=== PATIENT | female | born 1945 | race Caucasian/White ===

== ENCOUNTER 2020-08-06 10:57 | Outpatient (REF) | payer MEDICARE, SELFPAY ==
--- NOTE | ~2020-08-06 | MM_ITS ---
EXAMINATION: MM SCREENING DIGITAL BREAST TOMOSYNTHESIS, BILATERAL CLINICAL INFORMATION: Screening. Asymptomatic. The lifetime risk of breast cancer based on the Tyrer-Cuzick Model is 4%. COMPARISON: Mammography: 08/01/2019, 04/16/2018, 03/14/2017, 10/12/2015. TECHNIQUE: Digital breast tomosynthesis is performed in both the craniocaudal and mediolateral oblique views along with computer-aided detection (CAD). Synthesized 2D images are generated from the tomosynthesis. Additional right exaggerated CC view is provided. FINDINGS: The breasts are heterogeneously dense, which may obscure small masses (ACR BI-RADS breast composition Category c). There are no significant masses, abnormal calcifications, or other abnormalities. Parenchymal pattern is similar to prior exams. There is small stable nodular asymmetry posteromedial left breast. No developing density. The axilla and skin contours are unremarkable. No significant changes. MM/MM tomosynthesis screening BI IMPRESSION: No mammographic evidence of malignancy. ASSESSMENT: BI-RADS 2: Benign RECOMMENDATION: Routine annual mammography screening. This patient's information was entered into a reminder system with a target due date for their next mammogram.
== END 2020-08-06 10:58 | disposition home or self-care (01) ==
LOC: HO.MAMMO 10:57
PROVIDERS: PCP Internal Medicine; Visit Provider Internal Medicine
DX: Z12.31 Encounter for screening mammogram for malignant neoplasm of breast (principal)
CPT/HCPCS: 77063; 77067

== ENCOUNTER 2021-11-23 09:26 | Outpatient (REF) | payer MEDICARE, SELFPAY ==
--- NOTE | ~2021-11-23 | MM_ITS ---
EXAMINATION: MM SCREENING DIGITAL BREAST TOMOSYNTHESIS, BILATERAL CLINICAL INFORMATION: Screening. Asymptomatic. The lifetime risk of breast cancer based on the Tyrer-Cuzick Model is 5%. COMPARISON: Mammography: 08/06/2020, 08/01/2019, 04/16/2018 TECHNIQUE: Digital breast tomosynthesis is performed in both the craniocaudal and mediolateral oblique views along with computer-aided detection (CAD). Synthesized 2D images are generated from the tomosynthesis. FINDINGS: The breasts are heterogeneously dense, which may obscure small masses (ACR BI-RADS breast composition Category c). Breast tissue composition borders on average fibroglandular. There are no significant masses, abnormal calcifications, or other abnormalities. No developing density. No significant changes. MM/MM tomosynthesis screening BI IMPRESSION: No mammographic evidence of malignancy. ASSESSMENT: BI-RADS 1: Negative RECOMMENDATION: Routine annual mammography screening. This patient's information was entered into a reminder system with a target due date for their next mammogram.
== END 2021-11-23 09:27 | disposition home or self-care (01) ==
LOC: HO.MAMMO 09:26
PROVIDERS: Visit Provider Internal Medicine
DX: Z12.31 Encounter for screening mammogram for malignant neoplasm of breast (principal)
CPT/HCPCS: 77063; 77067

== ENCOUNTER 2022-11-29 09:14 | Outpatient (REF) | payer MEDICARE, SELFPAY ==
--- NOTE | ~2022-11-29 | MM_ITS ---
EXAMINATION: MM SCREENING DIGITAL BREAST TOMOSYNTHESIS, BILATERAL CLINICAL INFORMATION: Screening. Asymptomatic. The lifetime risk of breast cancer based on the Tyrer-Cuzick Model is 4.9%. COMPARISON: Mammography: This study is compared with prior exams dating back to 2017. TECHNIQUE: Digital breast tomosynthesis is performed in both the craniocaudal and mediolateral oblique views along with computer-aided detection (CAD). Synthesized 2D images are generated from the tomosynthesis. FINDINGS: There are scattered areas of fibroglandular density (ACR BI-RADS breast composition Category b). There are no significant masses, abnormal calcifications, or other abnormalities. MM/MM tomosynthesis screening BI IMPRESSION: No mammographic evidence of malignancy. ASSESSMENT: BI-RADS BI-RADS 1 - Negative RECOMMENDATION: Routine annual mammography screening. 1 year F/U This examination should not preclude the clinical evaluation of a suspicious palpable abnormality. This patient's information was entered into a reminder system with a target due date for their next mammogram.
== END 2022-11-29 09:15 | disposition home or self-care (01) ==
LOC: HO.MAMMO 09:14
PROVIDERS: Visit Provider Internal Medicine
DX: Z12.31 Encounter for screening mammogram for malignant neoplasm of breast (principal)
CPT/HCPCS: 77063; 77067

== ENCOUNTER → 2022-11-29 09:15 | Outpatient (BNV) | payer MEDICARE, SELFPAY | PROVIDERS: Visit Provider Radiology Diagnostic Radiology | DX: Z12.31 Encounter for screening mammogram for malignant neoplasm of breast (principal) | CPT/HCPCS: 77063; 77067 ==

== ENCOUNTER 2023-12-05 09:26 | Outpatient (REF) | payer MEDICARE, SELFPAY | END 2023-12-05 09:27 | disposition home or self-care (01) | LOC: HO.MAMMO 09:26 | PROVIDERS: PCP Internal Medicine; Visit Provider Internal Medicine | DX: Z12.31 Encounter for screening mammogram for malignant neoplasm of breast (principal) | CPT/HCPCS: 77063; 77067 ==

== ENCOUNTER → 2023-12-05 09:30 | Outpatient (BNV) | payer MEDICARE, SELFPAY | PROVIDERS: PCP Internal Medicine; Visit Provider Radiology Diagnostic Radiology | DX: Z12.31 Encounter for screening mammogram for malignant neoplasm of breast (principal) | CPT/HCPCS: 77063; 77067 ==

== ENCOUNTER 2024-08-04 10:24 | Day surgery (SDC) | payer MEDICARE, SELFPAY ==
[2024-07-29 15:28] VITALS: BMI 20.2
[2024-07-31 10:49] VITALS: BMI 20.2
--- NOTE | 2024-07-31 14:56 | HO.ANESPROP2 ---
Documented by User: Syeda Lemus NP 07/31/24 14:57 HPI - Anesthesia Eval Consult details Narrative: 79yo F for Left Cataract Extraction IOL Insertion No previous cataract on record PMFSH Past Medical History Medical History Aortic regurgitation Skin cancer PONV (postoperative nausea and vomiting) Osteoporosis Osteopenia Migraines Renal calculi Hyperparathyroidism Hyperlipidemia [place] thyroiditis Hiatal hernia GERD (gastroesophageal reflux disease) Surgical History Surgical History Hx of meniscectomy of right knee History of esophagogastroduodenoscopy (EGD) H/O colonoscopy History of colon surgery Hx of lithotripsy Social History Social History Patient Tobacco Use Status: Never used Tobacco Use of substances other than those prescribed or required for medical reasons: No Sabianist Healthcare Practices: none Advance Directives Information Provided: Yes (as above noted) Advance Directives on File: No FDLMP: n/a Meds Allergies Allergy/AdvReac Type Severity Reaction Status Date / Time aspirin [ASPIRIN] Allergy Intermediate STOMACH Verified 08/04/24 11:38 UPSET Penicillins [PENICILLINS] Allergy Intermediate RASH Verified 08/04/24 11:38 Sulfa (Sulfonamide Allergy Intermediate RASH Verified 08/04/24 11:38 Antibiotics) [SULFA (SULFONAMIDE ANTIBIOTICS)] alendronate sodium [Fosamax] Allergy Unknown Unknown Verified 08/04/24 11:38 hydrochlorothiazide Allergy Unknown Unknown Verified 08/04/24 11:38 pentazocine Allergy Unknown Unknown Verified 08/04/24 11:38 (Talwin) prochlorperazine Allergy Unknown UNKNOWN Verified 08/04/24 11:38 [From COMPAZINE] garlic [GARLIC] AdvReac Intermediate STOMACH Verified 08/04/24 11:38 UPSET lactose [LACTOSE] AdvReac Intermediate DIARRHEA Verified 08/04/24 11:38 tomato [TOMATO] AdvReac Intermediate STOMACH Verified 08/04/24 11:38 UPSET Home Medications ?Medication ?Instructions ?Recorded ?Confirmed ?Last Taken ?Type alendronate 70 mg tablet 70 mg PO QWEEK 07/31/24 07/31/24 Unknown History cholecalciferol (vitamin D3) 50 50 mcg PO DAILY 07/31/24 07/31/24 Unknown History mcg (2,000 unit) capsule (Vitamin D3) cyanocobalamin (vitamin B-12) 1,000 mcg PO DAILY 07/31/24 07/31/24 Unknown History 1,000 mcg tablet (Vitamin B-12) magnesium oxide 250 mg PO DAILY 07/31/24 07/31/24 Unknown History Exam Height,Weight and Vital Signs: Height 5 ft 1 in Weight 48.534 kg Assessment and Plan Assessment Anesthesia Assessment: Chart Reviewed Documented by User: Obdulia Trujillo MD 08/04/24 12:50 PMFSH Past Medical History Medical History Aortic regurgitation Skin cancer PONV (postoperative nausea and vomiting) Osteoporosis Osteopenia Migraines Renal calculi Hyperparathyroidism Hyperlipidemia [place] thyroiditis Hiatal hernia GERD (gastroesophageal reflux disease) Family History Family history of problems with anesthesia: No Surgical History Surgical History Hx of meniscectomy of right knee History of esophagogastroduodenoscopy (EGD) H/O colonoscopy History of colon surgery Hx of lithotripsy History of Problems with Anesthesia: No Social History Social History Patient Tobacco Use Status: Never used Tobacco Use of substances other than those prescribed or required for medical reasons: No Sabianist Healthcare Practices: none Advance Directives Information Provided: Yes (as above noted) Advance Directives on File: No FDLMP: n/a Meds Allergies Allergy/AdvReac Type Severity Reaction Status Date / Time aspirin [ASPIRIN] Allergy Intermediate STOMACH Verified 08/04/24 11:38 UPSET Penicillins [PENICILLINS] Allergy Intermediate RASH Verified 08/04/24 11:38 Sulfa (Sulfonamide Allergy Intermediate RASH Verified 08/04/24 11:38 Antibiotics) [SULFA (SULFONAMIDE ANTIBIOTICS)] alendronate sodium [Fosamax] Allergy Unknown Unknown Verified 08/04/24 11:38 hydrochlorothiazide Allergy Unknown Unknown Verified 08/04/24 11:38 pentazocine Allergy Unknown Unknown Verified 08/04/24 11:38 (Jimmy) prochlorperazine Allergy Unknown UNKNOWN Verified 08/04/24 11:38 [From COMPAZINE] garlic [GARLIC] AdvReac Intermediate STOMACH Verified 08/04/24 11:38 UPSET lactose [LACTOSE] AdvReac Intermediate DIARRHEA Verified 08/04/24 11:38 tomato [TOMATO] AdvReac Intermediate STOMACH Verified 08/04/24 11:38 UPSET Home Medications ?Medication ?Instructions ?Recorded ?Confirmed ?Last Taken ?Type alendronate 70 mg tablet 70 mg PO QWEEK 07/31/24 07/31/24 Unknown History cholecalciferol (vitamin D3) 50 50 mcg PO DAILY 07/31/24 07/31/24 Unknown History mcg (2,000 unit) capsule (Vitamin D3) cyanocobalamin (vitamin B-12) 1,000 mcg PO DAILY 07/31/24 07/31/24 Unknown History 1,000 mcg tablet (Vitamin B-12) magnesium oxide 250 mg PO DAILY 07/31/24 07/31/24 Unknown History Exam Airway Mallampati Class: II (caps) TM Dist: >3cm Neck ROM: Full Heart: rrr Lungs: cta Assessment and Plan Assessment Anesthesia Assessment: Anesthesia Plan Discussed Final Anesthetic Review Family History of Problems with Anesthesia: No History of Problems with Anesthesia: No NPO: Yes ASA Class: III Final Preanesthetic Review: No Changes in Pt Med Stat, Meds/Allgs Chart Reviewed and Consent Obtained/Reviewed Patient Risk: Intermediate Procedure Risk: Low Anesthetic Plan Anesthetic Plan: MAC: Disposition: Standard PACU
[2024-08-04] MEDS: Tetracaine HCl/PF 0.5% Oph Sol 4 ML DROPS 1 DROP EYE-LEFT (11:45)
[2024-08-04] MEDS: Cyclopentolate 1 % Ophth Sol 2 ML DRPBTL 1 DROP EYE-LEFT ×3 (11:47→12:07)
[2024-08-04] MEDS: Tropicamide 1 % Ophth Sol 3 ML BTL 1 DROP EYE-LEFT ×3 (11:52→12:08)
[2024-08-04] MEDS: Ketorolac Tromethamine 0.5% Op 5 ML DROPS 1 DROP EYE-LEFT ×3 (11:54→12:09)
[2024-08-04] MEDS: Phenylephrine HCL 2.5% Oph SoL 2 ML BOTTLE 1 DROP EYE-LEFT ×3 (11:56→12:10)
[2024-08-04 12:00] VITALS: BP 120/41; PULSE 76; RESP 15; TEMP 36.4; O2SAT 99
[2024-08-04] MEDS: Lactated Ringers 500 ML 50 ML IV (12:13)
--- NOTE | 2024-08-04 12:59 | MHC.SHP ---
Pre-Procedural Eval Section A - 24 Hr Update-Section A only Date of Service: 08/04/24 The patient is an INPATIENT: No Changes since office visit: No Cold of Flu in the past 2 weeks, No New Medical Problems, No Changes in Medication and No Patient answered all questions The patient has been examined within 24 hours of the surgical procedure. The History & Physical has been completed within 30 days and I have reviewed it.: Yes Section B - Complete if H&P > 30 days Chief Complaint: Age-related nuclear cataract, left eye Allergies: Allergies Allergy/AdvReac Type Severity Reaction Status Date / Time aspirin [ASPIRIN] Allergy Intermediate STOMACH Verified 08/04/24 11:38 UPSET Penicillins [PENICILLINS] Allergy Intermediate RASH Verified 08/04/24 11:38 Sulfa (Sulfonamide Allergy Intermediate RASH Verified 08/04/24 11:38 Antibiotics) [SULFA (SULFONAMIDE ANTIBIOTICS)] alendronate sodium [Fosamax] Allergy Unknown Unknown Verified 08/04/24 11:38 hydrochlorothiazide Allergy Unknown Unknown Verified 08/04/24 11:38 pentazocine Allergy Unknown Unknown Verified 08/04/24 11:38 (Talwin) prochlorperazine Allergy Unknown UNKNOWN Verified 08/04/24 11:38 [From COMPAZINE] garlic [GARLIC] AdvReac Intermediate STOMACH Verified 08/04/24 11:38 UPSET lactose [LACTOSE] AdvReac Intermediate DIARRHEA Verified 08/04/24 11:38 tomato [TOMATO] AdvReac Intermediate STOMACH Verified 08/04/24 11:38 UPSET Plan Diagnosis/Plan: Unchanged I have reviewed the history and physical and performed a pertinent physical examination on my patient. No changes have occurred unless specified. Time Spent With Patient Time: Total time managing care of this patient today ____ minutes.
--- NOTE | 2024-08-04 13:00 | P.PCNO_ITS ---
Ophthalmology Procedure Procedure Date of Service: 08/04/24 Ophthalmology Viscoelastic: Healon Duet Dual Pack Pro Ophthalmology Lenses: IOL Acrysof MP - MA60AC (22.5) Procedure Notes: PREOPERATIVE DIAGNOSIS: Decreased visual acuity left eye secondary to cataract POSTOPERATIVE DIAGNOSIS: Same PROCEDURE: Left cataract extraction with intraocular lens insertion SURGEON: Shad Acuna M.D. ANESTHESIA: Topical/MAC ESTIMATED BLOOD LOSS: None COMPLICATIONS: Zonulr Loss After obtaining informed consent, the patient was brought to the operation room suite and placed in the supine position. After adequate sedation per anesthesia, topical drops of Tetracaine were given to the left eye. The eye was then prepped and draped in the usual sterile fashion. The operating room microscope was then positioned over the operative eye and a lid speculum placed. A paracentesis was created. Viscoelastic was then instilled into the anterior chamber. A three plane incision was then created temporally, utilizing a 2.85 mm keratome. Capsulotomy forceps were then utilized to create a circular tear capsulotomy. Hydrodissection and hydrodelineation were carried out until adequate mobilization of the nucleus occurred. It was noted that there was loss of zonular suoport.Phacoemulsif ication was then utilized to remove the dense central nucleus and the lens was positioned into the anterior chamber. Anterior viterectomy was preformed. with removal of the cortical material utilizing . Viscoat elastic was instilled and the lens was sutured to the iris. The residual Viscoat elastic was then removed utilizing the vitrectomy unit. The wound was check and found to be watertight. The patient tolerated the procedure well and the lid speculum was removed. Intracameral injection of Vigamox 0.1 mL followed by a subtenon injection of Kenalog-40 0.2 mL were administered. The patient will be seen in the a.m.
[2024-08-04 14:40] VITALS: BP 120/48; PULSE 71; RESP 12; TEMP 36.8; O2SAT 100
[2024-08-04 14:55] VITALS: BP 122/50; PULSE 76; RESP 16; TEMP 36.8; O2SAT 99
== END 2024-08-04 15:03 | disposition home or self-care (01) ==
PROVIDERS: PCP Internal Medicine; Visit Provider Ophthalmology
PROC: (CPT 66985; principal; 2024-08-04 13:30)
DX: H25.12 Age-related nuclear cataract, left eye (principal); H27.8 Other specified disorders of lens; H54.7 Unspecified visual loss
CPT/HCPCS: 66984; 67005; J2250; J3010; J3301; V2630

== ENCOUNTER 2024-12-10 09:24 | Outpatient (REF) | payer MEDICARE, SELFPAY ==
--- OUTSIDE RECORDS SUMMARY | 2024-12-10 09:57 | XMS_ITS | Encounter Summary ---
Author Organization [facility] Address [address] [place] [id number] Phone Care Team Providers Care Grease Packer Name Role Phone Alexander Berry MD Unavailable [phone] Alexander Berry MD Unavailable [phone] Gino Kearney MD Unavailable [phone] Alexander Berry MD Primary Care Provider [phone] Liset Leon OT Unavailable Liset Leon OT Unavailable [phone] Liset Leon OT Unavailable [phone] Obdulia Fenton RN Unavailable [phone] Encounter Details Date Type Department Care Team (Latest Contact Info) Description 07/07/2022 Transcribe Orders Virtual Department [address] [place] [address] Steffany Elizalde MD [address] [place] [id number] Calculus of kidney (Primary Dx) Social History Tobacco Use Types Packs/Day Years Used Date Smoking Tobacco: Never Smokeless Tobacco: Never Alcohol Use Standard Drinks/Week Comments No 0 (1 standard drink = 0.6 oz pur e alcohol) Comments No Sex and Gender Information Value Date Recorded Sex Assigned at Female 01/13/2019 9:45 AM EDT Legal Sex Female 10:07 PM EDT Gender Identity Female 01/13/2019 9:45 AM EDT Sexual Orientation Straight 01/13/2019 9: 45 AM EDT documented as of this encounter Plan of Treatment Upcoming Encounters Date Type Department Care Team (Late st Contact Info) Description 02/16/2025 10:30 AM EDT Office Visit [facility] Internal Medicine [address] [place] [address] Alexander Berry MD [address] [place] [address] [email or web address] documented as of this encounter Results * XR ABDOMEN 1 VIEW (07/12/2022 12:44 PM EST) Anatomical Region Laterality Modality Abdomen Computed Radiogr aphy 07/12/2022 11:3 8 PM EST Impressions 07/12/2022 11:40 PM EST Stones seen on prior CT not visualized. These could be obscured by bowel gas or have passed after ECWL. Narrative 07/12/2022 11:40 PM EST XR ABDOMEN 1 VIEW INDICATION: Outside Radiology Order; CALCULUS OF KIDNEY COMPARISON: XR ABDOMEN 1 VIEW ; CT ABDOMEN WITHOUT CONTRAST ; CT ABDOMEN/PELVIS WITH AND WITHOUT CONTRAST FINDINGS: Tubes/Lines: None Bowel: No bowel dilatation. Constipation Bones/Soft Tissues: Kidneys obscured by bowel gas. Stones seen on prior CT not evident on the current examination. Calcified uterine fibroids. Procedure Note Juan Manuel Cameron MD - 07/12/2022 XR ABDOMEN 1 VIEW INDICATION: Outside Radiology Order; CALCULUS OF KIDNEY COMPARISON: XR ABDOMEN 1 VIEW ; CT ABDOMEN WITHOUT [id number]; CT ABDOMEN/PELVIS WITH AND WITHOUT CONTRAST FINDINGS: Tubes/Lines: None Bowel: No bowel dilatation. Constipation Bones/Soft Tissues: Kidneys obscured by bowel gas. Stones seen on prior CTnot evident on the current examination. Calcified uterine fibroids. IMPRESSION: Stones seen on prior CT not visualized. These could be obscured by bowelgas or have passed after ECWL. Steffany Elizalde MD IMG XR ABDOMEN Final Resu lt documented in this encounter Visit Diagnoses Diagnosis Calculus of kidney- Primary Calculus of kidney documented in this encounter Additional Health Concerns Infection Onset Date Last Indicated Resolved Time CoV-Risk 08/07/2024 08/07/2024 08/18/2024 1:21 AM EDT Assessment Noted Time PHQ-2 Depression Total Score: 0 10/21/19 8:17 AM EDT documented as of this encounter Care Teams Grease Packer Relationship Specialty Start Date End Date Alexander Berry MD [address] [place] [address] [email or web address] PCP - General Internal Medicine 10/08/20 Alexander Berry MD [address] [place] [address] [email or web address] Insurance Assigned Provider 08/25/23 Alexander Berry MD [address] [place] [address] [email or web address] Historical LMR Provider 03/10/17 Gino Kearney MD [address] [place] [id number] [email or web address] Gastroenterology 10/15/19 Liset Leon, OT [address] [place] [address] [email or web address] Transitions C Wpf DeveloperBiometrics Technician Therapy 02/08/23 Liset Leon, OT [address] [place] [address] [email or web address] Transitions C Wpf DeveloperBiometrics Technician Therapy 02/19/23 Liset Leon, OT [address] [place] [address] [email or web address] Transitions C Wpf DeveloperBiometrics Technician Therapy 03/02/23 Obdulia Fenton, RN [address] [place] [address] [email or web address] C Wpf Developer 08/28/23 09/26/23 documented as of this encounter Additional Source Comments The information contained in this document represents components of the legal health record. It is not the complete legal health record.[facility]
--- OUTSIDE RECORDS SUMMARY | 2024-12-10 09:57 | XMS_ITS | Patient Health Record ---
Author Organization [facility] Address [address] [place] [address] Care Team Providers Care Laborer Pole Crew Name Role Phone Alexander Berry MD Primary Care Provider Isai Servin Unavailable [phone] Allergies Allergen (clinical drug ingredient) Drug/Non Drug Allergy documented on EMR Reaction Allergy Type Onset Date Status erythromycin Erythromycin Unknown Drug Allergy A ctive Novocain Unknown Drug Allergy Active sulfa rash Drug Allergy Active Penicillin rash Drug Allergy Active codeine codeine stomach pain Drug Allergy Acti ve adhesive tape Unknown Drug Allergy Act edward aspirin stomach pain Drug Allergy Acti ve Reason For Referral No Information Medications Medication SIG (Take, Route, Frequency, Duration) Notes Start Date End Date Status Vitamin D 1000 UNIT 1 tablet Orally Once a day; Duration: 30 day(s) Not-[place] ing Calcium 7689-9470 MG-UNIT 1 tablet with a meal Orally Once a day; Duration: 30 day(s) Not-Taking vitamin Active Cipro 500 MG 1 tablet Orally qd; Duration: 05 days 03/27/2016 Active Magnesium 500 MG 1 tablet with a meal Orally Once a day; Duration: 30 day(s) Not-Taking Social History Tobacco use other than smoking: Question Answer Notes Are you an other tobacco user? No Plan Of Treatment Pending Test Test Name Order Date [id number] Plate 03/27/2016 41834- Debride <25 sq cm 04/10/2016 Insurance Providers Payer Name Payer Address Payer Phone Subscriber Number Group Number Insured Name Patient Relationship to Insured Coverage Start Date Coverage End Date Medicare National [employer] [address] [place] [address] [id number] Dagmar Lundy Self - patient is the insured [facility] [address] [place] [address] [id number] Dagmar Lundy Self - patient is the insured Medical (General) History Medical History History ICD Code chronic sinusitis measles mumps chicken pox Back,Hip,and Knee pain Gall bladder problems Headaches Osteoporosis Measles Mumps Chicken pox Joint implants/screws Surgical History Surgery Date(Month/Year) tonsillectomy thyroidectomy parathyroidectomy cholecystectomy knee surgery macular
== END 2024-12-10 09:25 | disposition home or self-care (01) ==
LOC: HO.MAMMO 09:24
PROVIDERS: PCP Internal Medicine; Visit Provider Internal Medicine
DX: Z12.31 Encounter for screening mammogram for malignant neoplasm of breast (principal)
CPT/HCPCS: 77063; 77067

== ENCOUNTER → 2024-12-10 09:30 | Outpatient (BNV) | payer MEDICARE, SELFPAY | PROVIDERS: PCP Internal Medicine; Visit Provider Radiology Body Imaging | DX: Z12.31 Encounter for screening mammogram for malignant neoplasm of breast (principal) | CPT/HCPCS: 77063; 77067 ==